=== PATIENT | male | born 1945 | race Two or more races ===

== ENCOUNTER 2018-10-04 09:35 | Outpatient (CLI) | payer OTHER ==
[~2018-10-04 09:35] MED LIST: ALTACE10 MG PO; AMLODIPINE-ATO1 EAC5 PO; BACLOFEN20 MG PO; GABAPENTIN800 MG PO; GLIPIZIDE10 MG PO; GLUMETZA1000 MG PO; PLAVIX75 MG PO
== END 2018-10-04 09:45 | disposition home or self-care (01) ==
LOC: LAB 09:35
DX: M85.88 Other specified disorders of bone density and structure, other site (principal); M81.8 Other osteoporosis without current pathological fracture; E56.1 Deficiency of vitamin K; E88.89 Other specified metabolic disorders; E83.42 Hypomagnesemia

== ENCOUNTER 2018-11-03 09:36 | Outpatient (CLI) | payer OTHER | END 2018-11-03 09:40 | disposition home or self-care (01) | LOC: LAB 09:36 | DX: E55.9 Vitamin D deficiency, unspecified (principal) ==

== ENCOUNTER 2019-05-30 08:14 | Outpatient (CLI) | payer OTHER | END 2019-05-30 08:24 | disposition home or self-care (01) | LOC: RAD 08:14 | DX: M25.551 Pain in right hip (principal); M79.651 Pain in right thigh ==